=== PATIENT | female | born 1990 | race African-American/Black ===

== ENCOUNTER 2017-06-07 08:58 | Emergency (ER) | payer MEDICARE, MEDICAID ==
[2017-06-07 09:12] VITALS: BP 131/74
--- NOTE | 2017-06-07 09:15 | EDM.PDOC ---
ED HPI GENERAL MEDICAL PROBLEM - General Chief Complaint: Upper Extremity Injury/Pain Stated Complaint: [id number] RIGHT HAND Time Seen by Provider: 06/07/17 09:15 Source of Information: Reports: Patient, RN, RN Notes Reviewed History Limitations: Reports: No Limitations - History of Present Illness INITIAL COMMENTS - FREE TEXT/NARRATIVE: C/O right hand pain and swelling for over one week without a specific cause. The pain and swelling is mostly at the dorsum of the hand. Pain is worse with extension of both fingers and wrist. Onset: Gradual Duration: Constant Location: Reports: Upper Extremity, Left Quality: Reports: Ache Severity: Moderate Improves with: Reports: Immobilization Worsens with: Reports: Movement Associated Symptoms: Reports: No Other Symptoms Right Hand Pain Score (Numeric/FACES): 8 - Related Data Allergies Allergy/AdvReac Type Severity Reaction Status Date / Time latex Allergy Mild Rash Verified 06/07/17 09:11 Penicillins Allergy Mild Rash Verified 06/07/17 09:11 bee stings Allergy Mild Swelling Uncoded 06/07/17 09:11 Home Meds: Home Meds Acetaminophen [Tylenol Extra Strength] 1,000 mg PO ASDIRECTED PRN 06/07/17 [ History] DULoxetine [Cymbalta] 30 mg PO DAILY 06/07/17 [History] Past Medical History - Past Health History Medical/Surgical History: Denies Medical/Surgical History Cardiovascular History: Reports: Afib 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 was adopted Other Dermatologic Family History: pt. was adopted no HX: - Tobacco Use Smoking Status *Q: Never Smoker Second Hand Smoke Exposure: No - Caffeine Use Caffeine Use: Reports: Coffee - Alcohol Use Days Per Week of Alcohol Use: 0 - Recreational Drug Use Recreational Drug Use: No - Living Situation & Occupation Living situation: Reports: with Family Occupation: Employed Review of Systems - Review of Systems Review Of Systems: ROS reveals no pertinent complaints other than HPI. ED EXAM, GENERAL - Physical Exam Exam: See Below Exam Limited By: No Limitations General Appearance: Alert, WD/WN, No Apparent Distress, Obese Head: Atraumatic, Normocephalic Respiratory/Chest: No Respiratory Distress Cardiovascular: Normal Peripheral Pulses Extremities: Normal Range of Motion (painful ROM in Rt hand and wrist), Other ( right hand with dorsal swelling and tenderness). No: Increased Warmth, Redness Neurological: Alert, No Motor/Sensory Deficits Psychiatric: Normal Mood Skin Exam: Warm, Dry, Intact, Normal Color, No Rash ED TRAUMA EXTREMITY PROCEDURES - Splinting Right Upper Extremity Splint Site: Rt hand/wrist Pre-Procedure NV Status: Normal Post-Procedure NV Status: Normal Splint Material: Metal Splint Design: Volar Applied & Form Fitted By: Provider Provider Post-Splint Application NV Check: NV Status Normal, Good Position Complications: Yes Course - Vital Signs Last Recorded V/S: Last Vital Signs Temp 36.9 C 06/07/17 09:06 Pulse 77 06/07/17 09:06 Resp 16 06/07/17 09:06 BP 131/74 06/07/17 09:06 Pulse Ox 99 06/07/17 09:06 - Orders/Labs/Meds Orders: Active Orders 24 hr Category Date Time Status Splinting [RC] ASDIRECTED Care 06/07/17 10:35 Active Departure - Departure Time of Disposition: 10:30 Disposition: Home, Self-Care 01 Condition: Good Clinical Impression: Tendinitis of extensor tendon of right hand, Arthritis of right hand - Discharge Information Instructions: Arthritis, [id number], Tendinitis, [id number] Forms: ED Department Discharge Additional Instructions: Rx: Naprosyn 500mg *Take with meals. Wear right hand/wrist splint while awake. May remove to wash and sleep. Limit repetitive and forceful use of right hand and wrist. Follow up in clinic in 7 to 10 days for recheck. - My Orders Last 24 Hours: My Active Orders 06/07/17 10:35 Splinting [RC] ASDIRECTED - Assessment/Plan Last 24 Hours: My Active Orders 06/07/17 10:35 Splinting [RC] ASDIRECTED
--- NOTE | 2017-06-07 10:24 | CR ---
CLINICAL HISTORY: 27-year-old female with wrist pain (injury). INTERPRETATION: Three views right wrist unremarkable. No sign of right wrist fracture (acute or healing) or dislocation. Tiny cysts body of the lunate bone noted incidentally. No osteoarthritic reactive changes.
--- NOTE | 2017-06-07 10:24 | CR ---
CLINICAL HISTORY: 27-year-old female with right hand pain (injury). INTERPRETATION: No sign of foreign body, inflammatory periostitis, right hand fracture (acute or heal ing) or joint dislocation right hand. Isolated sclerosis first metacarpal phalangeal and DIP joints of the thumb suggesting early arthritis .
== END 2017-06-07 10:52 | disposition home or self-care (01) ==
LOC: DL.ED 08:58
DX: M77.9 Enthesopathy, unspecified (principal); M19.041 Primary osteoarthritis, right hand; Z91.040 Latex allergy status; Z88.0 Allergy status to penicillin; Z91.030 Bee allergy status; Z79.899 Other long term (current) drug therapy
CPT/HCPCS: 29125; 73110-RT; 73130-RT; 99282; 99284

== ENCOUNTER 2020-07-26 22:16 | Emergency (ER) | payer MEDICARE, MEDICAID ==
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
[2020-07-26 22:38] VITALS: BP 176/114; PULSE 113
== END 2020-07-26 22:43 ==
LOC: DL.ED 22:16
DX: F10.10 Alcohol abuse, uncomplicated (principal); I48.91 Unspecified atrial fibrillation; Z91.040 Latex allergy status; Z88.0 Allergy status to penicillin; Z91.030 Bee allergy status
CPT/HCPCS: 80305-QW; 81025; 99283

== ENCOUNTER 2020-11-21 15:08 | Emergency (ER) | payer MEDICARE, MEDICAID ==
[2020-11-21 15:17] VITALS: BP 132/75; PULSE 76
--- NOTE | 2020-11-21 15:47 | EDM.PDOC ---
ED HPI GENERAL MEDICAL PROBLEM - General Chief Complaint: Lower Extremity Injury/Pain Stated Complaint: PAIN IN RIGHT KNEE Time Seen by Provider: 11/21/20 15:35 Source of Information: Reports: Patient History Limitations: Reports: No Limitations - History of Present Illness INITIAL COMMENTS - FREE TEXT/NARRATIVE: This 30 yo female patient reports to the ED due to her right knee "buckling". The patient reports she has been having similar symptoms over the past week. The patient has had a previous surgery on the knee and has a metal kneecap in that area. The patient reports she did fall about 2 weeks ago, but her symptoms started about 1 week after the fall. The patient reports she did call her library media specialist, but he was not able to get her in for an appointment. The patient reports she does have a set of crutches at home. Duration: Week(s):, Intermittent Location: Reports: Lower Extremity, Right Quality: Reports: Ache, Dull Severity: Moderate Improves with: Reports: None Worsens with: Reports: None Context: Reports: Activity Associated Symptoms: Reports: No Other Symptoms Right Knee Pain Score (Numeric/FACES): 8 - Related Data Allergies Allergy/AdvReac Type Severity Reaction Status Date / Time latex Allergy Mild Rash Verified 11/21/20 15:20 Penicillins Allergy Mild Rash Verified 11/21/20 15:20 bee stings Allergy Mild Swelling Uncoded 03/11/18 18:50 Home Meds: Home Meds Acetaminophen [Tylenol Extra Strength] 1,000 mg PO ASDIRECTED PRN 06/07/17 [History] DULoxetine [Cymbalta] 30 mg PO DAILY 06/07/17 [History] hydrOXYzine pamoate [Hydroxyzine Pamoate] 50 mg PO DAILY 03/11/18 [History] Past Medical History - Past Health History Medical/Surgical History: Denies Medical/Surgical History HEENT History: Reports: None Cardiovascular History: Reports: Afib Respiratory History: Reports: None Gastrointestinal History: Reports: None Genitourinary History: Reports: None 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: Musculoskeletal History: Reports: Arthritis Neurological History: Reports: None Psychiatric History: Reports: Depression, Learning Disability Endocrine/Metabolic History: Reports: None Hematologic History: Reports: None Immunologic History: Reports: None Oncologic (Cancer) History: Reports: None Dermatologic History: Reports: None - Infectious Disease History Infectious Disease History: Reports: Chicken Pox - Past Surgical History Head Surgeries/Procedures: Reports: None Musculoskeletal Surgical History: Reports: Arthroscopic Knee Social & Family History - Family History Family Medical History: Unobtainable Other HEENT Family History: pt. was adopted Other Dermatologic Family History: pt. was adopted no HX: - Tobacco Use Tobacco Use Status *Q: Never Tobacco User - Caffeine Use Caffeine Use: Reports: Tea - Recreational Drug Use Recreational Drug Use: No - Living Situation & Occupation Living situation: Reports: with Family Occupation: Employed Review of Systems - Review of Systems Review Of Systems: Comprehensive ROS is negative, except as noted in HPI. ED EXAM, GENERAL - Physical Exam Exam: See Below Exam Limited By: No Limitations General Appearance: Alert, WD/WN, Mild Distress Eye Exam: Bilateral Eye: EOMI, Normal Inspection, PERRL Ears: Normal External Exam, Normal Canal, Hearing Grossly Normal, Normal TMs Nose: Normal Inspection, Normal Mucosa, No Blood Throat/Mouth: Normal Inspection, Normal Lips, Normal Teeth, Normal Gums, Normal Oropharynx, Normal Voice, No Airway Compromise Head: Atraumatic, Normocephalic Neck: Normal Inspection, Supple, Non-Tender, Full Range of Motion Respiratory/Chest: No Respiratory Distress, Lungs Clear, Normal Breath Sounds, No Accessory Muscle Use, Chest Non-Tender Cardiovascular: Normal Peripheral Pulses, Regular Rate, Rhythm, No Edema, No Gallop, No JVD, No Murmur, No Rub (Female) Exam: Deferred Rectal (Female) Exam: Deferred Back Exam: Normal Inspection, Full Range of Motion, NT Extremities: Other (The patient has a surgical scar to her right anterior knee. The patient reports some numbness distal to the knee, but was able to move the knee without difficulties. ) Neurological: Alert, Oriented, CN II-XII Intact, Normal Cognition, Normal Gait, Normal Reflexes, No Motor/Sensory Deficits Psychiatric: Normal Affect, Normal Mood Skin Exam: Warm, Dry, Intact, Normal Color, No Rash Course - Vital Signs Last Recorded V/S: Last Vital Signs Temp 97.8 F 11/21/20 15:16 Pulse 76 11/21/20 15:16 Resp 16 11/21/20 15:16 BP 132/75 11/21/20 15:16 Pulse Ox 99 11/21/20 15:16 - Orders/Labs/Meds Orders: Active Orders 24 hr Category Date Time Status DME for Discharge [COMM] Urgent Oth 11/21/20 15:41 Ordered Departure - Departure Time of Disposition: 15:46 Disposition: Home, Self-Care 01 Condition: Fair Clinical Impression: Right knee buckling - Discharge Information *PRESCRIPTION DRUG MONITORING PROGRAM REVIEWED*: Not Applicable *COPY OF PRESCRIPTION DRUG MONITORING REPORT IN PATIENT KEVIN: Not Applicable Instructions: Crutch Use, Adult, [id number], Cast or Splint Care, Adult, [id number] Care Plan Goals: The patient was advised of the examination results during the visit. The patient was placed in a right knee immobilizer to stabilize her knee. The patient reports she has crutches at home for use. The patient was encouraged to follow- up with orthopedics for continued evaluation and further management. If the patient has any additional symptoms or concerns, the patient should either visit her primary care facility or return to the emergency department. Sepsis Event Note (ED) - Evaluation Sepsis Screening Result: No Definite Risk - Focused Exam Vital Signs: Vital Signs Temp Pulse Resp BP Pulse Ox 11/21/20 15:16 97.8 F 76 16 132/75 99 - My Orders Last 24 Hours: My Active Orders 11/21/20 15:41 DME for Discharge [COMM] Urgent - Assessment/Plan Last 24 Hours: My Active Orders 11/21/20 15:41 DME for Discharge [COMM] Urgent
== END 2020-11-21 15:57 | disposition home or self-care (01) ==
LOC: DL.ED 15:08
DX: M25.561 Pain in right knee (principal); I48.91 Unspecified atrial fibrillation; Z91.040 Latex allergy status; Z88.0 Allergy status to penicillin; Z91.030 Bee allergy status; Z79.899 Other long term (current) drug therapy
CPT/HCPCS: 99282; 99283

== ENCOUNTER 2022-03-25 10:07 | Emergency (ER) | payer MEDICARE, MEDICAID ==
[2022-03-25 10:24] VITALS: BP 117/72; PULSE 84
== END 2022-03-25 12:38 | disposition home or self-care (01) ==
LOC: DL.ED 10:07
DX: S43.491A Other sprain of right shoulder joint, initial encounter (principal); S80.01XA Contusion of right knee, initial encounter; Z88.5 Allergy status to narcotic agent; W00.9XXA Unspecified fall due to ice and snow, initial encounter
CPT/HCPCS: 73060-RT; 73562-RT; 99283

== ENCOUNTER 2022-12-30 17:00 | Emergency (ER) | payer MEDICARE, MEDICAID ==
[2022-12-30 17:49] VITALS: BP 140/78; PULSE 72
== END 2022-12-30 18:43 | disposition home or self-care (01) ==
LOC: DL.ED 17:00
DX: S99.921A Unspecified injury of right foot, initial encounter (principal); I48.91 Unspecified atrial fibrillation; E66.9 Obesity, unspecified; Z68.42 Body mass index [BMI] 45.0-49.9, adult; Z91.040 Latex allergy status; Z88.0 Allergy status to penicillin; Z91.030 Bee allergy status; Z79.899 Other long term (current) drug therapy; W18.40XA Slipping, tripping and stumbling without falling, unspecified, initial encounter
CPT/HCPCS: 73630-RT; 99282; 99283

== ENCOUNTER 2023-10-14 10:11 | Emergency (ER) | payer MEDICARE, MEDICAID ==
[2023-10-14 10:30] VITALS: BP 114/49; PULSE 74
[2023-10-14] MEDS: Sodium Chloride 0.9% 1,000 ML IV ONE ×2 (10:52→12:21)
[2023-10-14 10:53] LABS: BASOPHILS PERCENT AUTO 0.7 % (0.0-1.0); EOSINOPHILS PERCENT AUTO 2.7 % (1.0-3.0); HEMATOCRIT 41.6 % (37.0-47.0); HEMOGLOBIN 14.6 g/dL (12.0-16.0); LYMPHOCYTES PERCENT AUTO 36.7 % (20.5-50.1); MEAN CORPUSCULAR HEMOGLOBIN 31.1 pg (27.0-34.0); MEAN CORPUSCULAR HGB CONC 35.1 g/dL (33.0-35.0); MEAN CORPUSCULAR VOLUME 88.7 fL (80-100); MONOCYTES PERCENT AUTO 8.9 % (2-8); PLATELET COUNT,PLT 258 10^3/uL (150-450); RED BLOOD CELL COUNT 4.69 10^6/uL (4.2-5.4); WHITE BLOOD CELL COUNT,WBC 6.8 10^3/uL (5.0-10.0)
[2023-10-14 11:51] LABS: ALANINE AMINOTRANSFERASE,ALT 40 U/L (14-59); ALBUMIN 3.3 g/dL (3.4-5.0); ALKALINE PHOSPHATASE 56 U/L (46-116); ASPARTATE AMNIOTRANSFERASE,AST 16 U/L (15-37); BILIRUBIN TOTAL 0.2 mg/dL (0.2-1.0); BLOOD UREA NITROGEN,BUN 16 mg/dL (7-18); BUN/CREATININE RATIO 14.8 (No establ ref range); CALCIUM 9.3 mg/dL (8.5-10.1); CARBON DIOXIDE,CO2 25 mmol/L (21-32); CHLORIDE,CL 106 mmol/L (98-107); CREATININE 1.08 mg/dL (0.55-1.02); GLUCOSE RANDOM 95 mg/dL (70-99); MAGNESIUM 1.9 mg/dL (1.8-2.4); PROTEIN TOTAL,TP 7.4 g/dL (6.4-8.2); SODIUM,NA 141 mmol/L (136-145)
[2023-10-14 11:53] LABS: HCG QUALITATIVE,SERUM NEGATIVE (NEGATIVE)
[2023-10-14 11:54] LABS: APPEARANCE,URINE CLEAR (CLEAR); BILIRUBIN,URINE NEGATIVE (NEGATIVE); COLOR,URINE YELLOW (YELLOW); GLUCOSE,URINE NEGATIVE (NEGATIVE); KETONES,URINE NEGATIVE (NEGATIVE); LEUKOCYTE ESTERASE,URINE SMALL (NEGATIVE); NITRITE,URINE NEGATIVE (NEGATIVE); OCCULT BLOOD,URINE NEGATIVE (NEGATIVE); PROTEIN,URINE NEGATIVE (NEGATIVE); UROBILINOGEN,URINE 0.2 mg/dL (0.2-1.0)
[2023-10-14 11:58] LABS: ESTIMATED GFR 70 mL/min (>=60)
[2023-10-14 12:13] LABS: BACTERIA,URINE FEW /HPF (0-FEW/HPF); EPITHELIAL CELLS,URINE MODERATE /HPF (NOT SEEN); MUCUS,URINE FEW /LPF (NOT SEEN); RBC,URINE 0-5 /HPF (0-5)
[2023-10-14] MEDS: Ciprofloxacin in D5W 400 MG in Premix Bag 1 BAG IV ONE (12:21)
== END 2023-10-14 14:46 | disposition home or self-care (01) ==
LOC: DL.ED 10:11
DX: E86.0 Dehydration (principal); N17.9 Acute kidney failure, unspecified; N39.0 Urinary tract infection, site not specified; E66.9 Obesity, unspecified; Z88.0 Allergy status to penicillin; Z91.040 Latex allergy status; Z91.030 Bee allergy status; Z79.899 Other long term (current) drug therapy
CPT/HCPCS: 36415; 70450; 71045; 80053; 81001; 82947; 83735; 84484; 84703; 85025; 87086; 93005; 93010; 96361; 96365; 99284; J0744; J7030

== ENCOUNTER 2023-12-13 12:32 | Emergency (ER) | payer MEDICARE, MEDICAID ==
[2023-12-13 14:50] VITALS: BP 132/84; PULSE 91
== END 2023-12-13 14:09 | disposition home or self-care (01) ==
LOC: DL.ED 12:32
DX: O99.711 Diseases of the skin and subcutaneous tissue complicating pregnancy, first trimester (principal); L02.31 Cutaneous abscess of buttock; Z3A.10 10 weeks gestation of pregnancy; Z79.899 Other long term (current) drug therapy; Z88.0 Allergy status to penicillin; Z91.040 Latex allergy status; Z91.030 Bee allergy status
CPT/HCPCS: 87070; 99283